=== PATIENT | female | born 1975 | race Caucasian/White ===

== ENCOUNTER 2023-06-17 14:46 | Outpatient (AMB) | payer OTHER, SELFPAY ==
[2023-06-17 15:04] VITALS: BP 100/60; PULSE 90; O2SAT 98; BMI 33.8
--- NOTE | 2023-06-17 15:04 | A.OFFVIS_ITS ---
Intake Vital Signs 06/17/23 15:04 Height 5 ft 2 in Weight 185 lb BMI 33.8 BP 100/60 Blood Pressure Location Lt brachial Position Sitting Pulse 90 Pulse Source Pulse Oximeter Pulse Oximetry (%) 98 Oxygen Delivery Method Room Air Intake Visit Reasons: Asthma Call Center Analyst Required: No Allergies morphune Adverse Reaction (Severe, Uncoded 06/17/23 15:07) Swelling HPI HPI Comments History of Present Illness Details The patient is here for a pulmonary evaluation. The patient is a 48 year woman presenting with worsening asthma symptoms. The patient states that she started developing asthma like symptoms around 13-15 years ago. At that time he was she was having worsening chest tightness and wheezing coughing while having a viral syndrome. She usually improved with rescue inhaler. However, h er symptoms have been any worse. She has been noticing increasing chest tightness and wheezing on a regular basis. Moderate severity. She did have allergy testing previously demonstrating allergies to mold in addition to dust mites among other allergens. She was offered allergy shots but she can not commit the time at that time. The patient has been using Flovent inhaler and she does have a rescue inhaler that she continues to have symptoms. She does not feel like the inhalers helping. She also complains of reflux at times. She sometimes medicates with [id number] antacids. On further questioning she does have a dog and a cat. Denies any birds. Denies any exposure to any mold in the house. The pacemaker appears to be dry without any months. She does have also nasal congestion postnasal drip. Her nasal congestion significant where she feels like she can not breathe out of the right nostril more than the left. Moderate to severe. The patient does have some snoring at times. Although it does not really affect her. She denies any significant daytime drowsiness. As far as imaging studies she did have a chest x-ray back in 2020 which we personally reviewed which was completely normal. She did have a positive PPD previously as he was vaccinated with BCG while she lived in [place]. No evidence of any granulomas on her x-ray. ON LICENSE OF [facility] Medical History (Updated 06/17/23 @ 22:11 by Yusuf Gleason MD) Chronic allergic rhinitis Asthma Allergies Social History (Updated 06/17/23 @ 15:09 by TERESO Jimenez) Patient Tobacco Use Status: Never used Tobacco Review of Systems Const Denies fever(s) Eyes Reports no additional complaints ENT Reports nasal congestion, Reports nasal discharge and Reports post nasal drip Card Denies chest pain Resp Reports cough and Reports wheezing GI Reports heartburn Musc Reports no additional complaints Skin/Breast Denies rash Neuro Reports no additional complaints Quan/Lymph Denies lymphadenopathy Aller/Immun Reports wheezing Physical Exam Vital Signs: Last Vital Signs Pulse 90 06/17/23 15:04 BP 100/60 06/17/23 15:04 Pulse Ox 98 06/17/23 15:04 Oxygen Delivery Method Room Air 06/17/23 15:04 BMI result Body Mass Index 33.8 Const General: comfortable HEENT Head: Yes normocephalic Neck Neck: Yes supple Chest Chest palpation & inspection: normal inspection of the chest Resp Effort & Inspection: normal respiratory effort Auscultation: wheezes and diminished lung sounds Cardio Heart sounds: S1 normal heart sound present and S2 normal heart sound present GI Palpation (GI): Soft to palpation Extrem General: Yes no clubbing, cyanosis or edema Results Reviewed Results Reviewed: CXR 2020-personally reviwed at [facility], normal Assessment & Plan Assessment & Plan (1) Asthma: Code(s): J45.909 - Unspecified asthma, uncomplicated Qualifiers: Asthma severity: moderate Asthma persistence: persistent Asthma complication type: uncomplicated Qualified Code(s): J45.40 - Moderate persisten t asthma, uncomplicated (2) Allergies: Code(s): T78.40XA - Allergy, unspecified, initial encounter Qualifiers: Encounter type: initial encounter Qualified Code(s): T78.40XA - Allergy, unspecified, initial encounter (3) Chronic allergic rhinitis: Code(s): J30.9 - Allergic rhinitis, unspecified Plan Stop Flovent start Symbicort start Singulair Bloodwork/allergy testing PFTs at [facility] F/U 2-3 months Orders: Orders Complete Blood Count Auto Diff Today J45.909 - Unspecified asthma, uncomplicated, T78.40XA - Allergy, unspecified, initial encounter Hypersensitive Pneumonitis Prf Today J45.909 - Unspecified asthma, uncomplica lisseth, R91.8 - Other nonspecific abnormal finding of lung field, T78.40XA - Allergy, unspecified, initial encounter Immunoglobulin E Today J45.909 - Unspecified asthma, uncomplicated, T78.40XA - Allergy, unspecified, initial encounter Resp Allergy Profile Region I Today J45.909 - Unspecified asthma, uncomplicated, R91.1 - Solitary pulmonary nodule, T78.40XA - Allergy, unspecified, initial encounter PFT pulmonary function test Today J45.40 - Moderate persistent asthma, uncomplicated Basic Metabolic Panel Today J45.909 - Unspecified asthma, uncomplicated, T78.40XA - Allergy, unspecified, initial encounter Erythrocyte Sedimentation Rate Today J45.909 - Unspecified asthma, uncomplicated, T78.40XA - Allergy, unspecified, initial encounter Medications: New budesonide-formoterol 160-4.5 mcg/actuation (Symbicort) 2 puffs inhalation BID 30 days 10.2 grams 11RF J44.89 - Other specified chronic obstructive pulmonary disease montelukast (Singulair) 10 mg PO BEDTIME 30 days 30 tabs 11RF J45.909 - Unspecified asthma, uncomplicated Coding Level of Care Code New Pt Level 4 (09096) Diagnoses Moderate persistent asthma without complication J45.40 Asthma severity: moderate Asthma persistence: persistent Asthma complication type: uncomplicated Allergy, initial encounter T78.40XA Encounter type: initial encounter Chronic allergic rhinitis J30.9 Time Spent (min) 36
== END 2023-06-17 15:40 | disposition home or self-care (01) ==
PROVIDERS: PCP Internal Medicine; Visit Provider Hospitalist
DX: J45.40 Moderate persistent asthma, uncomplicated (principal); T78.40XA Allergy, unspecified, initial encounter; J30.9 Allergic rhinitis, unspecified
CPT/HCPCS: 99204

== ENCOUNTER → 2023-06-17 14:46 | Outpatient (BNVA) | payer OTHER, SELFPAY | PROVIDERS: PCP Internal Medicine; Visit Provider Hospitalist ==

== ENCOUNTER 2023-09-24 15:18 | Outpatient (AMB) | payer OTHER, SELFPAY ==
--- NOTE | 2023-09-24 15:25 | A.OFFVIS_ITS ---
Vital Signs 09/24/23 15:27 Height 5 ft 2 in Weight 185 lb BMI 33.8 Pulse 74 Pulse Source Pulse Oximeter Pulse Oximetry (%) 98 Oxygen Delivery Method Room Air Intake Visit Reasons: Asthma Call Or Contact Centre Team Leader Required: No Allergies morphune Adverse Reaction (Severe, Uncoded 09/24/23 15:28) Swelling HPI Comments Details: The patient is a 48 year woman presenting with worsening asthma symptoms. The patient states that she started developing asthma like symptoms around 13-15 years ago. At that time he was she was having worsening chest tightness and wheezing coughing while having a viral syndrome. She usually improved with rescue inhaler. However, her symptoms have been any worse. She has been noticing increasing chest tightness and wheezing on a regular basis. Moderate severity. She did have allergy testing previously demonstrating allergies to mold in addition to dust mites among other allergens. She was offered allergy shots but she can not commit the time at that time. The patient has been using Flovent inhaler and she does have a rescue inhaler that she continues to have symptoms. She does not feel like the inhalers helping. She also complains of reflux at times. She sometimes medicates with [id number] antacids. On further questioning she does have a dog and a cat. Denies any birds. Denies any exposure to any mold in the house. The pacemaker appears to be dry without any months. She does have also nasal congestion postnasal drip. Her nasal congestion significant where she feels like she can not breathe out of the right nostril more than the left. Moderate to severe. The patient does have some snoring at times. Although it does not really affect her. She denies any significant daytime drowsiness. As far as imaging studies she did have a chest x-ray back in 2020 which we personally reviewed which was completely normal. She did have a positive PPD previously as he was vaccinated with BCG while she lived in [place]. No evidence of any granulomas on her x-ray. 09/24/2023 the patient is here for a pulmonary follow-up visit. The patient overall has been doing better. She is responding well to the Symbicort. She is using it twice a day. In addition to that she is tolerating the singular. She denies any significant wheezing at this time. She is coughing is less. The patient did undergo pulmonary function studies which we personally reviewed. Her FEV1 to FVC prior to bronchodilators 71% and then improved to 78%. In addition to that she has significant air trapping hyperinflation. Likely component of her obstructive airway disease in this case reversible obstruction such as asthma. The patient did have blood work including allergy testing. Her IgE levels and eosinophils are relatively within normal limits. She has a little allergy to dogs but otherwise nothing too significant. Right now the patient does complaint of nasal congestion. Although she does not have significant allergies on her testing may be that it was a seasonal issue and now going to the spring and summer she may have more symptoms. She does have nasal congestion. So therefore will start her on Dymista to see if this provides some relief. And should continue with the current respiratory regimen. If she is doing well she can decrease the Symbicort. [facility] Medical History (Updated 06/17/23 @ 22:11 by Yusuf Gleason MD) Chronic allergic rhinitis Asthma Allergies Social History (Updated 06/17/23 @ 15:09 by TERESO Jimenez) Patient Tobacco Use Status: Never used Tobacco Review of Systems Const Denies fever(s) Eyes Reports no additional complaints ENT Reports nasal congestion, Reports nasal discharge and Reports post nasal drip Card Denies chest pain Resp Reports cough GI Reports heartburn Musc Reports no additional complaints Skin/Breast Denies rash Neuro Reports no additional complaints Quan/Lymph Denies lymphadenopathy Physical Exam Vital Signs: Last Vital Signs Pulse 74 09/24/23 15:27 Pulse Ox 98 09/24/23 15:27 Oxygen Delivery Method Room Air 09/24/23 15:27 BMI result Body Mass Index 33.8 Const General: comfortable HEENT Head: Yes normocephalic Neck Neck: Yes supple Chest Chest palpation & inspection: normal inspection of the chest Resp Effort & Inspection: normal respiratory effort Auscultation: no wheezes and diminished lung sounds Cardio Heart sounds: S1 normal heart sound present and S2 normal heart sound present GI Palpation (GI): Soft to palpation Extrem General: Yes no clubbing, cyanosis or edema Assessment & Plan Assessment & Plan (1) Asthma: Code(s): J45.909 - Unspecified asthma, uncomplicated Category: Medical Qualifiers: Asthma complication type: uncomplicated Asthma persistence: persistent Asthma severity: moderate Qualified Code(s): J45.40 - Moderate persistent asthma, uncomplicated (2) Allergies: Code(s): T78.40XA - Allergy, unspecified, initial encounter Category: Medical Qualifiers: Encounter type: initial encounter Qualified Code(s): T78.40XA - Allergy, unspecified, initial encounter (3) Chronic allergic rhinitis: Code(s): J30.9 - Allergic rhinitis, unspecified Category: Medical Plan continue Symbicort continue Singulair start Dymista nasal spray F/U 6-8 months Medications: New azelastine-fluticasone 137-50 mcg/spray administer into each nostril 1 spray intranasal BID 23 grams 11RF 30 days Coding Level of Care Code Est Pt Level 4 (49914) Diagnoses Moderate persistent asthma without complication J45.40 Asthma complication type: uncomplicated Asthma persistence: persistent Asthma severity: moderate Allergy, initial encounter T78.40XA Encounter type: initial encounter Chronic allergic rhinitis J30.9 Time Spent (min) 18
[2023-09-24 15:27] VITALS: PULSE 74; O2SAT 98; BMI 33.8
== END 2023-09-24 15:52 | disposition home or self-care (01) ==
PROVIDERS: PCP Internal Medicine; Visit Provider Hospitalist
DX: J45.40 Moderate persistent asthma, uncomplicated (principal); T78.40XA Allergy, unspecified, initial encounter; J30.9 Allergic rhinitis, unspecified
CPT/HCPCS: 99214

== ENCOUNTER → 2023-09-24 15:18 | Outpatient (BNVA) | payer OTHER, SELFPAY | PROVIDERS: PCP Internal Medicine; Visit Provider Hospitalist | DX: T78.40XA Allergy, unspecified, initial encounter (principal); J45.909 Unspecified asthma, uncomplicated ==